=== PATIENT | female | born 2005 | race Two or more races ===

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

== ENCOUNTER → 2024-05-20 | Emergency (ER) | payer OTHER ==
[~2024-05-20] VITALS: Ht 165.1 cm; Wt 50.8 kg
[~2024-05-20] MED LIST: AMOXICILLIN500 M1 PO; CEFDINIR300 MG PO
[2024-05-20 14:18] VITALS: BP 112/71; O2SAT 100
[2024-05-20 16:05] LABS: HEMATOCRIT 39.2 % (36.0-45.00); HEMOGLOBIN 12.9 g/dL (12.0-15.00); MEAN CELL VOLUME 86.3 fL (80.00-100.00); MEAN CORPUSCULAR HEMOGLOBIN 28.4 pg (27.00-32.0); PLATELET COUNT 212 K/uL (150-450); RED BLOOD COUNT 4.54 M/uL (4.00-6.00); RED CELL DISTRIBUTION WIDTH 13.3 % (11.5-14.5)
[2024-05-20 16:25] LABS: BILIRUBIN TOTAL 0.52 mg/dL (0.3-1.2); CALCIUM 9.4 mg/dL (8.5-10.1); CREATININE SERUM 0.76 mg/dL (0.55-1.02); GFR 98.04; GLOBULINA 3.8 G/DL (2.4-3.5); POTASSIUM 4.08 mEq/L (3.5-5.1); TOTAL PROTEIN 7.8 gm/dL (6.4-8.2)
== END | disposition home or self-care (01) ==
LOC: ER 13:23 → EMR PED 13:39
PROVIDERS: General Practice
DX: J02.9 Acute pharyngitis, unspecified (principal); Z20.822 Contact with and (suspected) exposure to COVID-19